=== PATIENT | male | born 1950 | race African-American/Black ===

== ENCOUNTER 2018-08-07 10:50 | Emergency (ER) | payer MEDICARE, OTHER ==
[~2018-08-07] VITALS: Ht 180.3 cm; Wt 81.6 kg
[2018-08-07 11:42] LABS: Urine Bacteria MANY /hpf (None Seen); Urine Blood 1+ /uL (Negative); Urine Hyaline Cast MOD /lpf (0 - 2); Urine Mucus FEW (None Seen); Urine Specific Gravity 1.026 (1.001-1.035); Urine WBC 33 /hpf (0 - 3)
[2018-08-07 17:40] VITALS: BP 166/88
== END 2018-08-07 18:46 | disposition home or self-care (01) ==
LOC: ER 10:50
DX: N50.89 Other specified disorders of the male genital organs (principal); N39.0 Urinary tract infection, site not specified; F17.210 Nicotine dependence, cigarettes, uncomplicated
CPT/HCPCS: 76870; 81001